=== PATIENT | female | born 1950 | race Caucasian/White ===

== ENCOUNTER 2018-02-14 09:20 | Emergency (ER) | payer BC, MEDICARE ==
[2018-02-14 10:32] VITALS: BP 143/68
--- NOTE | 2018-02-14 10:57 | ED ---
Throat Pain/Nasal Congestion - HPI Summary HPI Summary: 67 female with the complaint of right upper medial eyelid scratch, and swelling. The patient had bladder surgery a week ago. She states she was told by anaesthesia to keep her fingers away from her eyes as she was going to sleep. Her eyelid has bothered her since her surgery. This morning her upper eyelid was swollen. She has a small abrasion to the upper outer medial eyelid. No change in vision, no conjunctival drainage. - History of Current Complaint Chief Complaint: UCEye Time Seen by Provider: 02/14/18 10:40 - Allergies/Home Medications Allergies/Adverse Reactions: Allergies Allergy/AdvReac Type Severity Reaction Status Date / Time Fish Containing Products Allergy syncope Verified 02/14/18 10:38 avoids vaccines r/t leukemia Allergy Unknown Uncoded 02/14/18 10:38 Reaction Details cats Allergy Eyes Uncoded 02/14/18 10:34 Itchy/Swollen/Red/Watery Home Medications: Home Medications Floxin Type Antibiotic 1 dose PO SEE INSTRUCTIONS 02/14/18 [History Confirmed ] Levothyroxine TAB* [Synthroid TAB*] 100 mcg PO DAILY 02/14/18 [History Confirmed 02/14/18] Metoprolol Succinate [Metoprolol Succinate ER] 0 mg PO DAILY 02/14/18 [History Confirmed 02/14/18] Metoprolol Tartrate 0 mg PO BID 02/14/18 [History Confirmed 02/14/18] Ondansetron HCl [Zofran] 0 mg PO Q12H PRN 02/14/18 [History Confirmed 02/14/18] PMH/Surg Hx/FS Hx/Imm Hx Endocrine/Hematology History: Reports: Hx Thyroid Disease - hypo Cardiovascular History: Reports: Hx Hypertension Respiratory History: Reports: Hx Asthma - r/t exercise - Cancer History Cancer Type, Location and Year: leukemia - Surgical History Surgery Procedure, Year, and Place: bladder sling 02/07/18, , tonsils, kidney, cholecystectomy, right abdominal hernia repairs x 2; b/l eye lens replacement Infectious Disease History: No Infectious Disease History: Denies: Traveled Outside the [place] in Last 30 Days - Family History Known Family History: Positive: None - Social History Alcohol Use: None Substance Use Type: Reports: None Smoking Status (MU): Never Smoked Tobacco Review of Systems Positive: Other - eyelid. Negative: Photophobia, Blurred Vision, Diplopia, Drainage All Other Systems Reviewed And Are Negative: Yes Physical Exam Triage Information Reviewed: Yes Vital Signs On Initial Exam: Initial Vitals Temp Pulse Resp BP Pulse Ox 97.4 F 63 18 143/68 96 02/14/18 10:18 02/14/18 10:18 02/14/18 10:18 02/14/18 10:18 02/14/18 10:18 Vital Signs Reviewed: Yes Appearance: Positive: Well-Appearing, No Pain Distress Skin: Positive: Warm, Other - abrasion upper medial right eyelid Head/Face: Positive: Normal Head/Face Inspection Eyes: Positive: EOMI, SIENNA, Conjunctiva Clear, Other: - small abrasion right upper medial eyelid. No rash or lesions on rest of face.. Negative: Conjunctiva Inflammed, Discharge Neck: Positive: Nontender Respiratory/Lung Sounds: Positive: Clear to Auscultation, Breath Sounds Present Cardiovascular: Positive: RRR. Negative: Murmur Abdomen Description: Positive: Nontender Musculoskeletal: Positive: Strength/ROM Intact Neurological: Positive: Sensory/Motor Intact, Alert, Oriented to Person Place, Time, CN Intact II-III Psychiatric: Positive: Normal - Abilio Coma Scale Best Eye Response: 4 - Spontaneous Best Motor Response: 6 - Obeys Commands Best Verbal Response: 5 - Oriented Coma Scale Total: 15 Diagnostics - Vital Signs Vital Signs Temp Pulse Resp BP Pulse Ox 02/14/18 10:18 97.4 F 63 18 143/68 96 - Laboratory Lab Statement: Any lab studies that have been ordered have been reviewed, and results considered in the medical decision making process. EENT Course/Dx - Course Course Of Treatment: 67 yr old with abrasion upper medial right eyelid that has likley some cellulitis with the transient swelling earlier. The patient does not take immunizations and does not want any BOOSTRIX shot. - Diagnoses Provider Diagnoses: Abrasion, Cellulitis of right upper eyelid Discharge - Sign-Out/Discharge Documenting (check all that apply): Patient Departure All imaging exams completed and their final reports reviewed: No Studies - Discharge Plan Condition: Good Disposition: HOME Prescriptions: Cephalexin CAP* [Keflex CAP*] 500 mg PO QID #40 cap Referrals: No Primary Care Phys,NOPCP [Primary Care Provider] - - Billing Disposition and Condition Condition: GOOD Disposition: Home
== END 2018-02-14 11:20 | disposition home or self-care (01) ==
LOC: UCCORT 09:20
DX: S00.211A Abrasion of right eyelid and periocular area, initial encounter (principal); H00.031 Abscess of right upper eyelid; X58.XXXA Exposure to other specified factors, initial encounter; Y92.9 Unspecified place or not applicable; E03.9 Hypothyroidism, unspecified; I10 Essential (primary) hypertension; Z79.899 Other long term (current) drug therapy; Z87.09 Personal history of other diseases of the respiratory system; Z98.890 Other specified postprocedural states
CPT/HCPCS: 99202; G0463